=== PATIENT | female | born 1995 | race African-American/Black ===

== ENCOUNTER 2017-09-28 00:20 | Emergency (ER) | payer MEDICAID ==
[~2017-09-28] VITALS: Ht 162.6 cm; Wt 62.1 kg
[~2017-09-28 00:20] MED LIST: MOTRIN400 MG PO; NKM; ZOFRAN ODT4 MG ORAL
[2017-09-28 00:35] VITALS: BP 115/68
[2017-09-28 01:00] VITALS: BP 115/68
[2017-09-28] MEDS ORDERED: DIPHENHYDRAMINE25 M1 ORAL (01:08)
[2017-09-28] MEDS ORDERED: CYCLOBENZAPRINE10 MG ORAL (01:08)
[2017-09-28] MEDS ORDERED: TYLENOL EXTRA500 MG ORAL (01:08)
--- NOTE | 2017-09-28 05:02 | Emergency Room Report ---
History of Present Illness General Chief Complaint: Lower Back Pain or Injury Source: Patient Present Illness HPI 21-year-old presents ED complaining of back pain. Started 4 days ago. Denies trauma. Notes pain to the mid upper back. /10, nonradiating. Worse with bending and twisting. Denies dysuria or hematuria. Denies chest pain or shortness of breath. No other aggravating relieving factors. Denies any other associated symptoms Allergies: Coded Allergies: No Known Allergies (Unverified , 07/21/12) Patient History Past Medical History: none Past Surgical History: none Pertinent Family History: none Social History: Denies: smoking, alcohol use, drug use Last Menstrual Period: last month Now: No Immunizations: UTD Reviewed Nursing Documentation: PMH: Agreed, PSxH: Agreed Nursing Documentation-PMH Past Medical History: No Stated History Review of Systems All Other Systems: negative except mentioned in HPI Physical Exam Vital Signs Date Time Temp Pulse Resp B/P (MAP) Pulse Ox O2 Delivery O2 Flow Rate FiO2 09/28/17 00:34 98.2 78 18 115/68 98 Room Air Sp02 EP Interpretation: reviewed, normal General Appearance: no apparent distress, alert, GCS 15, non-toxic Head: normocephalic Eyes: bilateral eye normal inspection, bilateral eye PERRL ENT: normal ENT inspection Neck: normal inspection Respiratory: chest non-tender, lungs clear, normal breath sounds, speaking full sentences Cardiovascular #1: regular rate, rhythm, no edema Gastrointestinal: normal bowel sounds, non tender, soft, non-distended, no guarding, no rebound Rectal: deferred Genitourinary: no CVA tenderness, no vertebral tenderness Musculoskeletal: tender - paraspinal thoracic right sided pain under R scapula. no scapular pain Neurologic: alert, oriented x3, responsive, motor strength/tone normal, sensory intact, speech normal Psychiatric: normal inspection Skin: normal inspection Lymphatic: normal inspection Medical Decision Making Diagnostic Impression: Primary Impression: Back pain Qualified Codes: M54.6 - Pain in thoracic spine ER Course Hospital Course 21-year-old female presents ED complaining of mid back pain. No evidence of trauma Differential diagnoses include: pyelonephritis, kidney stone, muscle strain, Lspine fracture Clinical course Patient placed on stretcher. After initial history, physical exam reveals a young female in no acute distress. There is no vertebral body pain. There is no bruising or crepitus. There is paraspinal thoracic pain on the right side just underneath the right shoulder blade. There is no scapular tenderness. Consistent with muscle strain Diagnosis - back pain Stable and discharged to home with prescription for Tylenol, Flexeril. Followup with PMD. Return to ED if symptoms recur or worsen Last Vital Signs Date Time Temp Pulse Resp B/P (MAP) Pulse Ox O2 Delivery O2 Flow Rate FiO2 09/28/17 00:34 98.2 78 18 115/68 98 Room Air Status: improved Disposition: HOME, SELF-CARE Condition: Stable Scripts Diphenhydramine Hcl* (DIPHENHYDRAMINE HCL*) 25 Mg Capsule 25 MG ORAL Q6H Y for Itching, #30 CAP 0 Refills Prov: CLYDE RANDHAWA M.D. 09/28/17 Cyclobenzaprine Hcl* (FLEXERIL*) 10 Mg Tablet 10 MG ORAL TID Y for Muscle Spasm, #20 TAB Prov: CLYDE RANDHAWA M.D. 09/28/17 Acetaminophen* (TYLENOL EXTRA STRENGTH*) 500 Mg Tablet 500 MG ORAL Q8H Y for Prn Headache/Temp > 101, #30 TAB 0 Refills Prov: CLYDE RANDHAWA M.D. 09/28/17 [facility]errals: [facility]ERR[facility] (PCP) Patient Instructions: Lumbosacral Strain CLYDE RANDHAWA M.D. Sep 28, 2017 05:01
== END 2017-09-28 01:00 | disposition home or self-care (01) ==
LOC: EMR 01:00
DX: M54.5 Low back pain (principal)
CPT/HCPCS: 99284

== ENCOUNTER 2018-08-02 18:45 | Emergency (ER) | payer MEDICAID ==
[~2018-08-02] VITALS: Ht 157.5 cm; Wt 59.0 kg
[~2018-08-02 18:45] MED LIST changes: +CYCLOBENZAPRINE10 MG ORAL; +DIPHENHYDRAMINE25 M1 ORAL; +TYLENOL EXTRA500 MG ORAL
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
[2018-08-02 19:40] VITALS: BP 111/74
[2018-08-02] MEDS ORDERED: ACETAMINOPHEN-1 EAC1 ORAL (19:40)
[2018-08-02] MEDS ORDERED: TYLENOL EXTRA500 MG ORAL (19:40)
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
[2018-08-02 19:50] VITALS: BP 111/74
== END 2018-08-02 19:52 | disposition home or self-care (01) ==
LOC: EMR 19:03
DX: M86.8X7 Other osteomyelitis, ankle and foot (principal); S91.301D Unspecified open wound, right foot, subsequent encounter; W34.00XD Accidental discharge from unspecified firearms or gun, subsequent encounter
CPT/HCPCS: 99284

== ENCOUNTER 2019-08-24 00:51 | Emergency (ER) | payer MEDICAID ==
[~2019-08-24] VITALS: Ht 160 cm; Wt 59.0 kg
[~2019-08-24 00:51] MED LIST changes: +ACETAMINOPHEN-1 EAC1 ORAL
[2019-08-24 01:10] VITALS: BP 122/79
--- NOTE | 2019-08-24 01:10 | NUR ---
ED Nurse Note: Patient walked in to ER c/o flu like symptoms. AAOx4, VSS at this time.
--- NOTE | 2019-08-24 01:12 | Emergency Room Report ---
History of Present Illness General Chief Complaint: Flu Like Symptoms Source: Patient Present Illness HPI Is a 23-year-old female with no past medical history. She presents with chief complaint of flulike illness. She has subjective fever and chills. Has cough congestion. No appetite. Onset yesterday. She took DayQuil and it did not help. She had Mucinex prior to arrival. No trauma. Coughing is productive of phlegm. Pain is 8 out of 10. Denies any other complaint. Allergies: Coded Allergies: No Known Allergies (Unverified , 08/02/18) Patient History Past Medical History: see triage record, old chart reviewed Past Surgical History: none Pertinent Family History: none Social History: Denies: smoking Last Menstrual Period: 07/28 Now: No Immunizations: other Reviewed Nursing Documentation: PMH: Agreed; PSxH: Agreed Nursing Documentation-PMH Past Medical History: No Stated History Review of Systems Constitutional: Reports: chills, fever, weakness Eye: Denies: eye pain, blurred vision ENT: Denies: ear pain, nose congestion, throat swelling Respiratory: Reports: cough; Denies: shortness of breath Cardiovascular: Denies: chest pain, palpitations Gastrointestinal: Denies: abdominal pain, diarrhea, nausea, vomiting Musculoskeletal: Denies: back pain, joint pain Skin: Denies: rash Neurological: Denies: headache, numbness Endocrine: Denies: increased thirst, increased urine Hematologic/Lymphatic: Denies: easy bruising All Other Systems: negative except mentioned in HPI Physical Exam Vital Signs Date Time Temp Pulse Resp B/P (MAP) Pulse Ox O2 Delivery O2 Flow Rate FiO2 08/24/19 00:55 99.3 108 18 122/79 (93) 95 Vitals with low-grade fever Sp02 EP Interpretation: reviewed, normal General Appearance: well appearing, no apparent distress, alert Head: normocephalic, atraumatic Eyes: bilateral eye PERRL, bilateral eye EOMI ENT: hearing grossly normal, normal pharynx Neck: full range of motion, supple, no meningismus Respiratory: chest non-tender, lungs clear, normal breath sounds Cardiovascular #1: regular rate, rhythm, no murmur Gastrointestinal: normal bowel sounds, non tender, no mass, no organomegaly, no bruit, non-distended Musculoskeletal: back normal, normal range of motion, gait/station normal Psychiatric: mood/affect normal Medical Decision Making Diagnostic Impression: Primary Impression: Influenza-like symptoms ER Course Patient presents with flulike illness. No evidence of bacterial infection. No evidence of pneumonia, meningitis, UTI or other serious bacterial infection. Will discharge home. Last Vital Signs Date Time Temp Pulse Resp B/P (MAP) Pulse Ox O2 Delivery O2 Flow Rate FiO2 08/24/19 00:55 99.3 108 18 122/79 (93) 95 Status: improved Disposition: HOME, SELF-CARE Condition: Stable Scripts Oseltamivir Phosphate (Tamiflu) 75 Mg Capsule 75 MG ORAL TWICE A DAY, #10 CAP Prov: Willian Garzon MD 08/24/19 Ibuprofen* (MOTRIN*) 600 Mg Tablet 600 MG ORAL THREE TIMES A DAY, #30 TAB 0 Refills Prov: Willian Garzon MD 08/24/19 Referrals: [facility] (PCP) Additional Instructions: Rest. Increase fluids. Follow-up with your doctor in 7 days for recheck. Return if worse. Willian Garzon MD Aug 24, 2019 01:12
[2019-08-24 01:27] LABS: APPEARANCE,URINE CLEAR; BILIRUBIN, URINE NEGATIVE (NEGATIVE); COLOR,URINE PALE YELLOW; GLUCOSE, URINE (UA) NEGATIVE (NEGATIVE); KETONES,URINE 4+ (NEGATIVE); LEUKOCYTE ESTERASE ,URINE NEGATIVE (NEGATIVE); NITRITE,URINE NEGATIVE (NEGATIVE); PH,URINE 6 (4.5-8.0); PROTEIN,URINE NEGATIVE (NEGATIVE); UROBILINOGEN,URINE NORMAL MG/DL (0.0-1.0)
[2019-08-24] MEDS ORDERED: TAMIFLU75 MG ORAL (01:46)
[2019-08-24] MEDS ORDERED: IBUPROFEN600 MG ORAL (01:46)
[2019-08-24 01:51] VITALS: BP 122/79
--- NOTE | 2019-08-24 01:52 | NUR ---
ED Nurse Note: Pt cleared by health care Provider for discharge. DC instructions/prescription was given and explained to pt and verbalized understanding of teachings. All medical deviecs such as ID band removed. Pt is AAO x4, ambulatory and left with all personal belongings.
== END 2019-08-24 01:52 | disposition home or self-care (01) ==
LOC: EMR 01:09
DX: J11.1 Influenza due to unidentified influenza virus with other respiratory manifestations (principal)
CPT/HCPCS: 81003; 81025; Z7502; 99283